=== PATIENT | female | born 1970 | race Caucasian/White ===

== ENCOUNTER 2016-06-14 08:53 | Emergency (ER) | payer BC | END 2016-06-14 11:45 | disposition home or self-care (01) | LOC: ER 08:53 | DX: R51 Headache (principal); F41.9 Anxiety disorder, unspecified; F32.9 Major depressive disorder, single episode, unspecified; Z90.49 Acquired absence of other specified parts of digestive tract; Z79.899 Other long term (current) drug therapy; Z88.1 Allergy status to other antibiotic agents; Z88.8 Allergy status to other drugs, medicaments and biological substances ==